=== PATIENT | male | born 1990 | race Caucasian/White ===

== ENCOUNTER 2018-05-16 22:54 | Emergency (ER) | payer BC ==
[~2018-05-16] VITALS: Ht 175.3 cm; Wt 86.2 kg
[2018-05-16 23:00] VITALS: Ht 175.3 cm; Wt 86.2 kg
[2018-05-17 01:52] VITALS: BP 120/79
== END 2018-05-17 01:52 | disposition home or self-care (01) ==
LOC: ED 22:54
DX: F10.129 Alcohol abuse with intoxication, unspecified (principal); R11.10 Vomiting, unspecified